=== PATIENT | female | born 2000 | race Two or more races ===

== ENCOUNTER 2020-03-28 06:19 | Emergency (ER) | payer OTHER ==
[2020-03-28] MEDS ORDERED: CEPHALEXIN 500 MG CAPSULE PO ONE (08:11)
[2020-03-28] MEDS ORDERED: OXYCODONE-ACETAMINOPHEN 5-325 MG TABLET PO ONE (08:11)
--- NOTE | 2020-03-28 08:13 | ER Document Report ---
HPI - HPI Patient complains to provider of: Pilonidal abscess Time Seen by Provider: 03/28/20 08:03 Onset: Other - 4 days Onset/Duration: Worse Quality of pain: Sharp Pain Level: 4 Context: Patient states that she has had a chronic pilonidal cystic lesion for many years although over the past 4 days the area has become tender and painful. Patient did see her primary doctor was placed on Bactrim 2 days ago. Patient denies any fever or drainage. Associated Symptoms: denies: Fever Exacerbated by: Sitting, Movement, Walking Relieved by: Denies Similar symptoms previously: No Recently seen / treated by doctor: Yes - ROS ROS below otherwise negative: Yes Systems Reviewed and Negative: Yes All other systems reviewed and negative - CONSTITUTIONAL Constitutional: DENIES: Fever, Chills - GASTROINTESTINAL Gastrointestinal: DENIES: Nausea - REPRODUCTIVE Reproductive: DENIES: : - DERM Skin Color: Erythema Notes: Abscess to sacrum Past Medical History - General Information source: Patient - Social History Smoking Status: Current Some Day Smoker Frequency of alcohol use: None Drug Abuse: None Occupation: [employer] Lives with: Family Family History: Reviewed & Not Pertinent Patient has homicidal ideation: No - Medical History Medical History: Negative Past Surgical History: Reports: Hx Orthopedic Surgery Vertical Provider Document - CONSTITUTIONAL Agree With Documented VS: Yes Exam Limitations: No Limitations General Appearance: WD/WN, No Apparent Distress - HEENT HEENT: Atraumatic, Normocephalic - NECK Neck: Normal Inspection, Supple. negative: Lymphadenopathy-Left, Lymphadenopathy-Right - RESPIRATORY Respiratory: Breath Sounds Normal, No Respiratory Distress - CARDIOVASCULAR Cardiovascular: Regular Rate, Regular Rhythm - MUSCULOSKELETAL/EXTREMETIES Musculoskeletal/Extremeties: MAEW - NEURO Level of Consciousness: Awake, Alert, Appropriate Motor/Sensory: No Motor Deficit - DERM Integumentary: Warm, Dry, Abscess - Pilonidal abscess to apex of gluteal cleft with surrounding erythema Course - Re-evaluation Re-evalutation: 03/28/20 Patient with good drainage after I&D procedure. Patient does have erythema surrounding the area worrisome for possible developing cellulitis, will start cephalexin in addition to the Bactrim patient has already been prescribed. Wou nd culture has been obtained. Good return precautions discussed with patient. Patient verbalized understanding is agreeable with plan of care. - Vital Signs Vital signs: Temp Pulse Resp BP Pulse Ox 98.9 F 92 H 16 120/61 98 03/28/20 06:33 03/28/20 06:26 03/28/20 06:26 03/28/20 06:26 03/28/20 06:26 Procedures - Incision and Drainage Right Buttock Type: Simple Anesthetic type: 1% Lidocaine Blade size: 11 I&D procedure: Betadine prep applied Incision Method: Incision made by scalpel Amount/type of drainage: Large amount of purulent drainage Adult Front & Back picture: 1 - I&D site Discharge - Discharge Clinical Impression: Pilonidal abscess, Encounter for incision and drainage procedure Condition: Stable Disposition: HOME, SELF-CARE Instructions: Cephalexin ([facility]), Oral Narcotic Medication ([facility]), Post Incision and Drainage, Trimethoprim-Sulfa ([facility]) Additional Instructions: Return immediately for any new or worsening symptoms Followup with your primary care provider, call tomorrow to make a followup appointment Wound culture is pending, will call if you need any different treatment Prescriptions: Cephalexin Monohydrate [Keflex 500 mg Capsule] 500 mg PO Q6H 5 Days #20 capsule Oxycodone HCl/Acetaminophen [Percocet 5-325 mg Tablet] 1 tab PO ASDIR PRN #8 tablet PRN Reason: Forms: Return to Work Referrals: [facility] [Provider Group] - Follow up as needed
[2020-03-28 10:00] VITALS: BP 115/55
== END 2020-03-28 09:59 | disposition home or self-care (01) ==
LOC: ER 06:19
DX: L05.01 Pilonidal cyst with abscess (principal); F17.200 Nicotine dependence, unspecified, uncomplicated
CPT/HCPCS: 36415; 87070; 87075; 87077; 87205; 99283

== ENCOUNTER 2020-05-20 09:18 | Day surgery (SDC) | payer OTHER, MEDICAID ==
[2020-05-15 10:16] LABS: HEMATOCRIT 35.3 % (36.0-47.0); HEMOGLOBIN 12.4 g/dL (12.0-15.5); MEAN CORPUSCULAR HEMOGLOBIN 31.3 pg (27.0-33.4); MEAN CORPUSCULAR HGB CONC 35.2 g/dL (32.0-36.0); MEAN CORPUSCULAR VOLUME 89 fl (80-97); PLATELET COUNT 265 10^3/uL (150-450); RED BLOOD COUNT 3.97 10^6/uL (3.72-5.28); RED CELL DISTRIBUTION WIDTH 13.5 % (11.5-14.0); WHITE BLOOD COUNT 8.6 10^3/uL (4.0-10.5)
[~2020-05-20 09:18] MED LIST: CEFAZOLIN 1 GM/D5W RTU 1 GM/50 ML RTUPB IV PRN; CEFAZOLIN 2 GM/D5W RTU 2 GM/50 ML RTUPB IV PRN; LACTATED RINGERS 1000 ML IV PRN; LIDOCAINE 0.5% INJ-PF (5 MG/ML) 50 ML SDV SUBCUT PRN
[2020-05-20] MEDS ORDERED: CEFAZOLIN 2 GM/D5W RTU 2 GM/50 ML RTUPB IV ONE (09:48)
[2020-05-20] MEDS ORDERED: MIDAZOLAM 2 MG/2 ML INJ ONE (10:53)
[2020-05-20] MEDS ORDERED: FENTANYL CITRATE INJ/PF 100 MCG/2 ML AMPUL ONE (10:53)
[2020-05-20] MEDS ORDERED: ONDANSETRON HCL INJ/PF 4 MG/2 ML SDV ONE (10:53)
[2020-05-20] MEDS ORDERED: PROPOFOL INJ 200 MG/20 ML VIAL IV ONE (10:53)
[2020-05-20] MEDS ORDERED: BUPIVACAINE INJ/PF LIPOSOME/PF 266 MG/20 ML SDV ONE (10:55)
[2020-05-20] MEDS ORDERED: LIDOCAINE 2% JELLY 5 ML TUBE ONE (10:55)
[2020-05-20] MEDS ORDERED: METHYLENE BLUE 50 MG/10 ML AMPULE ONE (10:55)
--- NOTE | 2020-05-20 12:07 | Operative Report ---
Nonrecallable Operative Report DATE OF SURGERY: 05/20/20 PREOPERATIVE DIAGNOSIS: Pilonidal cyst POSTOPERATIVE DIAGNOSIS: Pilonidal cyst OPERATION: Pilonidal cystectomy SURGEON: CHIVO GUERRIER ANESTHESIA: GA TISSUE REMOVED OR ALTERED: Pilonidal cyst and overlying skin COMPLICATIONS: None INTRAOPERATIVE FINDINGS: See note PROCEDURE: Patient was brought to the operating awake alert stable condition placed on the operative table induced under general anesthesia intubated she was then placed in a prone position. After appropriate timeout site verification procedure commenced. Patient had a pilonidal cyst in the buttock cleft is about a centimeter and a half in diameter. Elliptical incision was made around the pilonidal cyst dissection was carried down through subcutaneous tissue to the presacral fascia with Bovie cautery and the cyst and subcutaneous tissue were removed. A small skin cyst was made in the buttock cleft and using a tonsil clamp a tract was created between there and the pilonidal cyst excision site a Jen drain was brought through quarter inch. The subcutaneous tissue was then reapproximated interrupted 3-0 Vicryl and skin was reapproximated with interrupted 3-0 nylon suture. Sterile dressing was applied which completed the procedure. Estimated blood loss was less than 10 cc sponge needle counts correct x2 patient was awakened in the operative extubated transferred recovery stable condition no complications
--- NOTE | 2020-05-20 12:10 | Discharge Summary ---
Discharge Summary (SDC) - Discharge Final Diagnosis: Pilonidal cyst Date of Surgery: 05/20/20 Discharge Date: 05/20/20 Condition: Good Treatment or Instructions: Change dressing as needed as it becomes soiled with blood or fluid Prescriptions: Hydrocodone/Acetaminophen [[place] 10-325 mg Tablet] 1 tab PO Q6HP PRN #15 tablet PRN Reason: Referrals: NEELA GAXIOLA DO [Primary Care Provider] - Discharge Diet: As Tolerated Discharge Activity: Activity As Tolerated, No Lifting Over 10 Pounds Report the Following to Your Physician Immediately: Fever over 101 Degrees, Unusual Bleeding
[2020-05-20] MEDS ORDERED: HYDROCODONE/ACETAMINOPHEN 10-325 MG TABLET PO PRN (12:11)
[2020-05-20] MEDS ORDERED: HYDROCODONE/ACETAMINOPHEN 10-325 MG TABLET ONE (12:46)
[2020-05-20] MEDS ORDERED: SUCCINYLCHOLINE CHLORIDE INJ 200 MG/10 ML VIAL ONE (12:48)
[2020-05-20] MEDS ORDERED: ROCURONIUM BROMIDE INJ 50 MG/5 ML VIAL IV ONE (12:48)
[2020-05-20] MEDS ORDERED: FENTANYL CITRATE INJ/PF 100 MCG/2 ML AMPUL IV PRN ×3 (12:50)
[2020-05-20] MEDS ORDERED: MEPERIDINE HCL/PF INJ 25 MG/1 ML DISP.SYRIN IV PRN (12:50)
[2020-05-20] MEDS ORDERED: MORPHINE SULFATE 10 MG/ML INJ IV PRN (12:50)
[2020-05-20] MEDS ORDERED: ONDANSETRON HCL INJ/PF 4 MG/2 ML SDV IV PRN (12:50)
[2020-05-20] MEDS ORDERED: OXYCODONE-ACETAMINOPHEN 5-325 MG TABLET PO PRN ×2 (12:50)
[2020-05-20] MEDS ORDERED: DIPHENHYDRAMINE HCL 50 MG/ML VIAL IV PRN (12:50)
[2020-05-20] MEDS ORDERED: PROMETHAZINE HCL INJ 25 MG/1 ML VIAL IV PRN (12:50)
[2020-05-20 14:14] VITALS: BP 105/61
== END 2020-05-20 13:47 | disposition home or self-care (01) ==
LOC: OROUT 09:18
PROVIDERS: ATTEND Surgery
DX: L05.91 Pilonidal cyst without abscess (principal)
CPT/HCPCS: 36415; 85027; 87635; 81025; 00300; 11770; J2250; J3490; J3010; J0330; J2405; J2704; J0690; C9290; C9803; 300; Q9968

== ENCOUNTER 2020-05-30 12:43 | Emergency (ER) | payer OTHER, MEDICAID ==
[2020-05-30 12:50] VITALS: BP 110/59
[2020-05-30] MEDS ORDERED: ERYTHROMYCIN 0.5% OPH OINTMENT 3.5 GM (ER DISP) OS STA (13:04)
[2020-05-30] MEDS ORDERED: VALACYCLOVIR HCL 500 MG TABLET PO ONE (13:04)
[2020-05-30] MEDS ORDERED: PREDNISONE 20 MG TABLET PO ONE (13:04)
--- NOTE | 2020-05-30 13:09 | ER Document Report ---
ED Neuro Symptoms/Deficit - General Chief Complaint: Numbness of Face Stated Complaint: FACIAL NUMBNESS Time Seen by Provider: 05/30/20 12:53 Primary Care Provider: NEELA GAXIOLA DO [Primary Care Provider] - Follow up as needed Mode of Arrival: Ambulatory Information source: Patient Notes: 19-year-old female presented to ED for numbness and paralysis to the left side of her face. She states that just started this night. She states she started to cry realize she could not close her eye became more scared. She states she has been looking everything up on the Internet because she was very concerned thinking she was having a stroke. She has no changes in neurological status except for the left side of the face. 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 - HPI Patient complains to provider of: Facial Droop, Paralysis. No: Difficulty standing, Difficulty walking, Speech Impairment, Vision Changes, Weakness Onset: Yesterday Awoke with symptoms: No Duration: Continues in ED Quality of pain: No pain Severity: None Pain Level: Denies Context: None Loss of consciousness: No loss of consciousness Baseline Cognitive: Alert, oriented X 3 Baseline Gait: Walks w/o assistance Vision problem/glaucoma: No Associated symptoms: Other - Cyst left side of face otherwise no neurological deficits Similar symptoms previously: No Recently seen / treated by doctor: No - Related Data Allergies/Adverse Reactions: No Known Allergies Allergy (Verified 05/20/20 09:41) Past Medical History - General Information source: Patient - Social History Smoking Status: Current Some Day Smoker - 1-2 times a month Frequency of alcohol use: Occasional Drug Abuse: None Lives with: Family Family History: Reviewed & Not Pertinent Patient has suicidal ideation: No Patient has homicidal ideation: No - Past Medical History Cardiac Medical History: Reports: None Pulmonary Medical History: Reports: None EENT Medical History: Reports: None Neurological Medical History: Reports: None Endocrine Medical History: Reports: None Renal/ Medical History: Reports: None Malignancy Medical History: Reports: None GI Medical History: Reports: None Musculoskeletal Medical History: Reports None Skin Medical History: Reports None Psychiatric Medical History: Reports: None Traumatic Medical History: Reports: None Infectious Medical History: Reports: None Past Surgical History: Reports: Hx Orthopedic Surgery - Immunizations Hx Diphtheria, Pertussis, Tetanus Vaccination: Yes Review of Systems - Review of Systems Constitutional: No symptoms reported EENT: Other - Paralysis to the left side of her face unable to close her eye facial droop to the left side of her mouth Cardiovascular: No symptoms reported Respiratory: No symptoms reported Gastrointestinal: No symptoms reported Genitourinary: No symptoms reported Female Genitourinary: No symptoms reported Musculoskeletal: No symptoms reported Skin: No symptoms reported Hematologic/Lymphatic: No symptoms reported Neurological/Psychological: Other - Paralysis to the left side of her face unable to close her left eye completely -: Yes All other systems reviewed and negative Physical Exam - Vital signs Vitals: Temp Pulse Resp BP Pulse Ox 98.5 F 87 16 110/59 L 97 05/30/20 12:48 05/30/20 12:48 05/30/20 12:48 05/30/20 12:48 05/30/20 12:48 Interpretation: Normal - General General appearance: Appears well, Alert - HEENT Head: Normocephalic, Atraumatic Eyes: Tears - Unable to close left eye Conjunctiva: Other - Dry conjunctiva Pupils: PERRL Ears: Normal External canal: Normal Tympanic membrane: Normal Sinus: Normal Nasal: Normal Mouth/Lips: Other - Left-sided droop unable to smile evenly Pharynx: Normal Neck: Normal - Respiratory Respiratory status: No respiratory distress Chest status: Nontender Breath sounds: Normal Chest palpation: Normal - Cardiovascular Rhythm: Regular Heart sounds: Normal auscultation Murmur: No - Abdominal Inspection: Normal Distension: No distension Bowel sounds: Normal Tenderness: Nontender Organomegaly: No organomegaly - Back Back: Normal, Nontender - Extremities General upper extremity: Normal inspection, Nontender, Normal color, Normal ROM, Normal temperature General lower extremity: Normal inspection, Nontender, Normal color, Normal ROM, Normal temperature, Normal weight bearing. No: Ember's sign - Neurological Neuro grossly intact: Yes Cognition: Normal Orientation: AAOx4 Bracey Coma Scale Eye Opening: Spontaneous Bracey Coma Scale Verbal: Oriented Driss Coma Scale Motor: Obeys Commands Bracey Coma Scale Total: 15 Speech: Normal Motor strength normal: LUE, RUE, LLE, RLE Sensory: Normal - Psychological Associated symptoms: Normal affect, Normal mood - Skin Skin Temperature: Warm Skin Moisture: Dry Skin Color: Normal Course - Re-evaluation Re-evalutation: 05/30/20 13:[address] Talbot, he recommended prednisone Valtrex and erythromycin ointment and discharge patient. Patient to follow-up with primary care. These instructions were given to patient and patient was discharged home. - Vital Signs Vital signs: Temp Pulse Resp BP Pulse Ox 98.5 F 87 16 110/59 L 97 05/30/20 12:48 05/30/20 12:48 05/30/20 12:48 05/30/20 12:48 05/30/20 12:48 Discharge - Discharge Clinical Impression: Echavarria's palsy Condition: Stable Disposition: HOME, SELF-CARE Additional Instructions: [place]' Palsy You have been diagnosed as having Echavarria's Palsy -- a paralysis of certain muscles of the face. It's caused by a temporary paralysis of the nerve which controls the muscles. The cause is unknown, but it's thought to be caused by a virus in most cases. The physician's exam shows that this is NOT a stroke. Echavarria's Palsy usually gets better by itself. There is no cure. Sometimes cortisone-type medication is given to decrease nerve swelling. This problem is usually temporary, lasting about three weeks. During that time, you must protect the eye from injury (because the eyelid muscles often do not cover it). Ointment or a patch may be necessary. Be sure to follow up as instructed, and call the doctor at once if new symptoms arise. Report any eye pain, decreasing vision or double vision, or any numbness or weakness outside the face area. valtrex Valtrex is used to treat infections caused by the Herpes family of viruses. It's available as capsules or ointment. valtrexis most effective if started at the first sign of the viral outbreak. It can decrease the severity and duration of symptoms. However, it doesn't eliminate the virus from the body completely. If you're prone to repeated outbreaks of herpes, you'll continue to have attacks. Call the doctor if you develop wheezing, itching, rash, shortness of breath, or lightheadedness. STEROID MEDICATION: You have been given a medicine of the cortisone/steroid class. This medication is used to control inflammation or allergy. It is usually only given for a short period of time, until the acute process subsides. There are usually no side effects from short-term use of cortisone-like medications. Some persons feel an increased sense of well-being and are not sleepy at bedtime. Long-term use of cortisone medications is best avoided, unless required for a severe condition. If your condition does not remit, or relapses after the course of corticosteroid medication, you should consult your physician. Erythromycin You have been prescribed an antibiotic of the erythromycin class. These antibiotics are used for many infections, especially in penicillin-allergic patients. They're particularly useful for infections of the respiratory system. The medication will be most effective if taken before or at least two hours after meals. However, many persons will have nausea or stomach cramping with erythromycin. If this occurs, try taking the medicine with food. If the side effects are still intolerable, contact your doctor. You should not take erythromycin with non-sedating antihistamines such as Seldane or Hismanal. Call the doctor at once if you develop rash, itching, shortness of breath, or lightheadedness. FOLLOW-UP CARE: If you have been referred to a physician for follow-up care, call the physicians office for an appointment as you were instructed or within the next two days. If you experience worsening or a significant change in your symptoms, notify the physician immediately or return to the Emergency Department at any time for re-evaluation. Prescriptions: Prednisone [Deltasone 10 mg Tablet] 10 mg PO ASDIR #21 tablet Erythromycin Base [E-Mycin 0.5% Oph Ointment 3.5 gm] 1 applic LFT_EYE QID #1 tube Valacyclovir HCl [Valtrex] 1,000 mg PO TID 7 Days #35 tablet Referrals: NEELA GAXIOLA DO [Primary Care Provider] - Follow up as needed
== END 2020-05-30 13:25 | disposition home or self-care (01) ==
LOC: ER 12:43
DX: G51.0 Bell's palsy (principal); R20.0 Anesthesia of skin; F17.200 Nicotine dependence, unspecified, uncomplicated
CPT/HCPCS: 99283; J7512